=== PATIENT | female | born 1940 | race Caucasian/White ===

== ENCOUNTER 2017-06-26 16:07 | Emergency (ER) | payer OTHER ==
[2017-06-26] MEDS ORDERED: TRANEXAMIC ACID 1,000 MG/10 ML VIAL ONE (16:38)
--- NOTE | 2017-06-26 16:53 | EDPHY ---
General - History Smoking Status: Never smoked Time Seen by Provider: 06/26/17 16:34 Narrative: CHIEF COMPLAINT: Bleeding from the right ear HISTORY OF PRESENT ILLNESS: Patient presents with complaints of bleeding from her right ear canal. This started around 10:00 a.m. After trying to use a Q-tip. She takes Eliquis and the bleeding has not stopped, despite multiple pieces of gauze being placed in her ear at the [facility]. She has no pain with this. No headache. No vomiting. No bleeding from any other site. She is here only because the bleeding would not. No other associated complaints or modifying factors. 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 Currently resides in assisted living FAMILY HISTORY: Noncontributory EXAMINATION General Appearance: Alert, no distress Head: normocephalic, atraumatic Eyes: Pupils equal and round, no conjunctival pallor or injection ENT, Mouth: Hearing intact to normal conversation. Left EAC is clear right EAC does have excoriation with mild venous bleeding. No foreign body. The right TM is well visualized and is not perforated. No pulsatile bleeding Psychiatric: Mood and affect normal DIFFERENTIAL DIAGNOSES: Including but not limited to barotrauma, perforated TM, external auditory canal excoriation, Eliquis coagulopathy MDM: 4:35 p.m. Superficial excoriation to the right external auditory canal with minimal bleeding. The TM was well visualized and there is no perforation. She does take Eliquis, thus I will administer topical TXA. She has no headache. She has no ear pain or changes in her hearing. 5:10 p.m. Patient re-evaluated. I do not appreciate any bleeding around the ear wick of the right EAC. I do feel she is stable for discharge home. I discussed case with Dr. Portillo and he agrees that the ear wick may be left in place and removed later this evening. The patient is instructed to contact primary care physician and to return here should she have any return of bleeding. She is comfortable this plan and discharged in stable condition. SUPERVISION: Patient was independently examined, but I discussed the case with my secondary supervising physician Dr. Portillo ([facility]) - Objective Vital Signs: Initial Vital Signs Temperature (C) 97.9 F 06/26/17 16:10 Heart Rate 102 H 06/26/17 16:10 Blood Pressure 122/83 H 06/26/17 16:10 O2 Sat (%) 96 06/26/17 16:10 O2 Delivery Mode Room Air Allergies/Adverse Reactions: No Known Allergies Allergy (Verified 06/26/17 16:09) Home Medications: Medication Instructions Recorded Crestor 06/26/17 Diltiazem 06/26/17 Eliquis 06/26/17 Lisinopril 06/26/17 Medications Given: Discontinued Medications Tranexamic Acid (Cyklokapron) 1,000 mg TP EDNOW ONE Stop: 06/26/17 17:26 Last Admin: 06/26/17 17:30 Dose: 1,000 mg Departure - Departure Disposition: Home, Routine, Self-Care Clinical Impression: Coagulopathy Injury of external auditory canal Qualifiers: Encounter type: initial encounter Qualified Code(s): S09.91XA - Unspecified injury of ear, initial encounter Condition: Good Instructions: Apixaban (By mouth) Additional Instructions: 1. The ear wick in the right external auditory canal should be removed when you return back to her [facility] 2. Contact your primary care physician to be re-evaluated on Thursday 3. Return to emergency department for any return of bleeding 4. Do not use any Q-tips Referrals: Physician,Emergency Dept, [Medical Doctor] - As per Instructions David Akbar MD [Medical Doctor] - As per Instructions
[2017-06-26] MEDS ORDERED: TRANEXAMIC ACID 1,000 MG/10 ML VIAL TP ONE (17:25)
[2017-06-26 17:44] VITALS: BP 137/77
== END 2017-06-26 17:45 | disposition home or self-care (01) ==
DX: S09.91XA Unspecified injury of ear, initial encounter (principal); Z79.01 Long term (current) use of anticoagulants; Z86.73 Personal history of transient ischemic attack (TIA), and cerebral infarction without residual deficits; W22.8XXA Striking against or struck by other objects, initial encounter